=== PATIENT | female | born 1995 | race Caucasian/White ===

== ENCOUNTER 2023-11-28 07:44 | Emergency (ER) | payer MEDICAID, OTHER ==
[~2023-11-28] VITALS: Ht 167.6 cm; Wt 100.0 kg
[2023-11-28 07:53] VITALS: O2SAT 96
[2023-11-28] MEDS ORDERED: TETRACAINE 0.5% OPHTH DROPS 4ML RIGHTEYE ONE (09:15)
[2023-11-28] MEDS ORDERED: FLUORESCEIN SODIUM 1MG/STRIP RIGHTEYE ONE (09:15)
[2023-11-28] MEDS ORDERED: OCUFLX RIGHTEYE (09:52)
[2023-11-28 10:08] VITALS: BP 137/72; PULSE 68; RESP 17; TEMP 98.3
== END 2023-11-28 10:17 | disposition home or self-care (01) ==
LOC: ER 07:44
DX: H10.9 Unspecified conjunctivitis (principal)
CPT/HCPCS: 99283